=== PATIENT | male | born 1980 | race African-American/Black ===

== ENCOUNTER 2018-12-01 10:27 | Emergency (ER) | payer SELFPAY ==
[~2018-12-01] VITALS: Ht 170.2 cm; Wt 57.0 kg
[2018-12-01] MEDS ORDERED: FAMOTIDINE 20MG/2ML VIAL IV STA (13:01)
[2018-12-01] MEDS ORDERED: VISCOUS LIDOCAINE 2% 15 ML UDC PO STA (13:01)
[2018-12-01] MEDS ORDERED: MAGNESIUM/ALUMINUM HYDROXIDE/SIMETHICONE 30ML UDC PO STA (13:01)
[2018-12-01 13:54] LABS: BASOPHILS % 0.8 % (0.0-2.0); EOSINOPHILS % 11.7 % (0.0-5.0); HEMATOCRIT. 43.1 % (42.0-52.0); HEMOGLOBIN. 14.4 g/dL (14.0-18.0); LYMPHOCYTES % 32.7 % (20.0-50.0); MEAN CORPUSCULAR HEMOGLOBIN 30.2 pg (28.0-32.0); MEAN CORPUSCULAR VOLUME 90.5 fL (80.0-94.0); MEAN PLATELET VOLUME 8.1 fl (7.4-10.4); MONOCYTES % 9.7 % (2.0-8.0); NEUTROPHILS % 45.1 % (40.0-76.0); PLATELET 192 x1000/uL (130-400); RED BLOOD CELL COUNT 4.76 mill/uL (4.7-6.1); RED CELL DISTRIBUTION WIDTH 14.1 % (11.6-14.6)
[2018-12-01 13:59] LABS: CHLORIDE 105 mEq/L (98-107)
[2018-12-01 15:22] LABS: CLARITY URINE CLOUDY (CLEAR); COLOR URINE YELLOW (YELLOW); KETONES URINE NEGATIVE (NEGATIVE); LEUKOCYTE ESTERASE URINE NEGATIVE (NEGATIVE); NITRITE URINE NEGATIVE (NEGATIVE); OCCULT BLOOD URINE NEGATIVE (NEGATIVE); PH URINE 6.5 (4.5-8.0); PROTEIN URINE NEGATIVE (NEGATIVE); SPECIFIC GRAVITY URINE 1.015 (1.005-1.030); UROBILINOGEN URINE 0.2 E.U./dL (0.2-1.0)
[2018-12-01 16:15] VITALS: BP 137/92
== END 2018-12-01 16:15 | disposition home or self-care (01) ==
LOC: ER 10:27
DX: R10.9 Unspecified abdominal pain (principal); F17.200 Nicotine dependence, unspecified, uncomplicated
CPT/HCPCS: 36415; 80053; 81003; 83690; 85025; 96374; 99283; J3490